=== PATIENT | male | born 1975 | race Hispanic/Latino ===

== ENCOUNTER 2017-02-26 19:23 | Emergency (ER) | payer BC, OTHER ==
--- NOTE | 2017-02-26 20:16 | C.PDOC ---
History Of Present Illness Patient presents to the ER after he fell down the stairs at 2:00am while inebriated; he went to an urgent care clinic who referred him to the ER. Patient is awake, alert and oriented x3 and states he remembers the fall. Denies any physical complaints at this time. - HPI Time Seen by Provider: 02/26/17 20:16 Chief Complaint (Nursing): Trauma History Per: Patient History/Exam Limitations: no limitations Onset/Duration Of Symptoms: Hrs Injury Occurred (Timing): Today @ (2:00am) Severity: None Pain Scale Rating Of: 0 Associated Symptoms: Other (No symptoms) Recent travel outside of the [place]: No Past Medical History Reviewed: Historical Data, Nursing Documentation, Vital Signs Vital Signs: Last Vital Signs Temp 98.1 F 02/26/17 21:44 Pulse 86 02/26/17 21:44 Resp 17 02/26/17 21:44 BP 124/72 02/26/17 21:44 Pulse Ox 99 02/26/17 21:44 - Medical History PMH: Hypercholesterolemia - [facility] Procedures APPLICATION OF SPLINT (08/03/14) DETOXIFICATION SERVICES FOR SUBSTANCE ABUSE TREATMENT (08/29/15) ESOPHAGOGASTRODUODENOSCOPY [EGD] W/CLOSED BIOPSY (02/05/15) 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 Negative for: Vision Change ENT: Negative for: Ear Pain, Throat Pain Cardiovascular: Negative for: Chest Pain Respiratory: Negative for: Shortness of Breath Gastrointestinal: Negative for: Nausea, Vomiting, Abdominal Pain Genitourinary: Negative for: Hematuria Musculoskeletal: Negative for: Neck Pain Skin: Positive for: Bruising Neurological: Negative for: Weakness, Numbness, Confusion, Altered Mental Status Psych: Negative for: Anxiety Physical Exam - Physical Exam Appears: Non-toxic, No Acute Distress Skin: Warm, Dry, Ecchymosis (Bilateral periorbital), Other (Bilateral periorbital edema) Head: Normacephalic, No Tenderness, Swelling Eye(s): bilateral: PERRL, EOMI, right: Normal Inspection, left: Other ( Subconjunctival hemorrhage) Ear(s): Bilateral: Normal Nose: Normal, No Septal Hematoma Oral Mucosa: Moist Throat: No Erythema Neck: Normal, Normal ROM, Trachea Midline, No Midline Cervical Tenderness, No Paracervical Tenderness, No Step Off Deformity Chest: Symmetrical, No Tenderness Cardiovascular: Rhythm Regular, No Murmur Respiratory: No Rales, No Rhonchi, No Wheezing Gastrointestinal/Abdominal: Soft, No Tenderness Extremity: Normal ROM Extremity: Bilateral: Atraumatic Neurological/Psych: Oriented x3, Normal Speech, Normal Cognition Gait: Steady ED Course And Treatment O2 Sat by Pulse Oximetry: 100 (Room air) Pulse Ox Interpretation: Normal Progress Note: CT of head, orbits, facials and cervical spine ordered. Reevaluation Time: 22:08 Reassessment Condition: Improved Disposition Counseled Patient/Family Regarding: Studies Performed, Diagnosis, Need For Followup - Disposition Referrals: Eleni Moseley MD [Staff Provider] - Disposition: HOME/ ROUTINE Disposition Time: 20:16 Condition: FAIR Instructions: Facial Contusion (ED), Subconjunctival Hemorrhage (ED) - Clinical Impression Clinical Impression: Facial contusion, Subconjunctival hemorrhage - Scribe Statement The provider has reviewed the documentation as recorded by the Scribtami Carrington All medical record entries made by the Scribe were at my direction and personally dictated by me. I have reviewed the chart and agree that the record accurately reflects my personal performance of the history, physical exam, medical decision making, and the department course for this patient. I have also personally directed, reviewed, and agree with the discharge instructions and disposition.
[2017-02-26 21:46] VITALS: BP 124/72; PULSE 86; RESP 17; TEMP 98.1
[2017-02-26 22:10] VITALS: O2SAT 100
--- NOTE | 2017-02-27 08:46 | CT ---
PROCEDURE: CT HEAD WITHOUT CONTRAST. HISTORY: fall. Head injury. COMPARISON: None available. TECHNIQUE: Axial computed tomography images were obtained through the head/brain without intravenous contrast. Radiation dose: Total exam DLP = 833 mGy-cm. This CT exam was performed using one or more of the following dose reduction techniques: Automated exposure control, adjustment of the mA and/or kV according to patient size, and/or use of iterative reconstruction technique. FINDINGS: HEMORRHAGE: No intracranial hemorrhage. BRAIN: No mass effect or edema. No atrophy or chronic microvascular ischemic changes. VENTRICLES: Unremarkable. No hydrocephalus. CALVARIUM: Unremarkable. PARANASAL SINUSES: Unremarkable as visualized. No significant inflammatory changes. MASTOID AIR CELLS: Unremarkable as visualized. No inflammatory changes. OTHER FINDINGS: Extensive pre zygomatic, supra zygomatic, and scalp soft tissue injuries. Soft tissue injuries in both preseptal regions. IMPRESSION: Trauma limited to extensive soft tissue and scalp hematoma/ laceration without intracranial trauma or fracture. Please refer to the entire trauma series. If symptoms persists, consider further evaluation with MRI. These findings were preliminarily reported at 9:43 p.m. on 02/26/[address] Renee Drew from [facility].
--- NOTE | 2017-02-27 08:54 | CT ---
CT orbits History: Fall. Injury. Comparison: None available. Technique: Axial computed tomographic images of the face were performed without intravenous contrast. Subsequently, sagittal and coronal reformatted images were created and reviewed. This CT exam was performed using one or more of the following dose reduction techniques: Automated exposure control, adjustment of the mA and/or kV according to patient size, and/or use of iterative reconstruction technique. Findings: Beam hardening artifact from dental amalgams. Age indeterminate angulated nasal bone fractures. Extensive bilateral pre mandibular, malar, premaxillary, pre zygomatic, supra zygomatic, preseptal, and scalp soft tissue injuries. Orbital globes are grossly intact but better evaluated clinically. Mild mucosal thickening of the right maxillary sinus and ethmoid air cells. Periodontal disease. Benign tonsillar crypt calcification. Prominent posterior disc osteophyte complex at the C5-6 level. Impression: Extensive soft tissue injuries. Age indeterminate nasal bone fractures. Additional findings as above. These findings were preliminarily reported at 9:47 p.m. on 02/26/[address] Renee Drew from [facility].
--- NOTE | 2017-02-27 09:06 | CT ---
CT cervical spine History: Injury. Neck pain. Comparison: None available. Technique: Axial computed tomographic images of the cervical spine were performed without intravenous contrast. Subsequently, sagittal and coronal reformatted images were obtained. This CT exam was performed using one or more of the following dose reduction techniques: Automated exposure control, adjustment of the mA and/or kV according to patient size, and/or use of iterative reconstruction technique. Findings: Spondylosis and facet arthrosis, most pronounced at the C5-6 level where there is a moderate posterior disc osteophyte complex. Narrowing of the atlantodental interval with sclerosis and bony hypertrophy. No evidence of acute displaced fracture. No significant prevertebral soft tissue swelling. Benign tonsillar crypt calcifications. Thyroid atrophy. Mild biapical scarring. Impression: Degenerative changes. Negative acute. If pain persists, consider MRI. These findings were preliminarily reported at 9:48 p.m. on 02/26/[address] Renee Drew from [facility].
== END 2017-02-26 22:24 | disposition home or self-care (01) ==
LOC: C.ER 19:23
DX: S00.83XA Contusion of other part of head, initial encounter (principal); H11.32 Conjunctival hemorrhage, left eye; W10.9XXA Fall (on) (from) unspecified stairs and steps, initial encounter; Y92.9 Unspecified place or not applicable